=== PATIENT | male | born 1995 | race Caucasian/White ===

== ENCOUNTER 2017-06-19 09:59 | Emergency (ER) | payer OTHER ==
[~2017-06-19] VITALS: Ht 175.3 cm; Wt 86.2 kg
[2017-06-19] MEDS ORDERED: KEFLEX500 MG PO (11:08)
[2017-06-19] MEDS ORDERED: NORCO 5-325 TA1 EACH PO (11:09)
[2017-06-19] MEDS ORDERED: FLAGYL500 MG PO (11:09)
== END 2017-06-19 11:20 | disposition home or self-care (01) ==
LOC: ED 09:59
DX: L05.91 Pilonidal cyst without abscess (principal); F17.200 Nicotine dependence, unspecified, uncomplicated; Z88.1 Allergy status to other antibiotic agents
CPT/HCPCS: 87070; 87077; 87186; 87205; 99283

== ENCOUNTER 2017-08-27 10:31 | Emergency (ER) | payer OTHER ==
[~2017-08-27] VITALS: Ht 175.3 cm; Wt 81.7 kg
[~2017-08-27 10:31] MED LIST: FLAGYL500 MG PO; KEFLEX500 MG PO; NORCO 5-325 TA1 EACH PO
[2017-08-27] MEDS ORDERED: AUGMENTIN 875-1 EACH PO (10:55)
[2017-08-27] MEDS ORDERED: NORCO 5-325 TA1 EACH PO (10:55)
== END 2017-08-27 11:00 | disposition home or self-care (01) ==
LOC: ED 10:31
DX: L02.31 Cutaneous abscess of buttock (principal); F17.200 Nicotine dependence, unspecified, uncomplicated; Z88.1 Allergy status to other antibiotic agents; Z98.890 Other specified postprocedural states; Z79.899 Other long term (current) drug therapy
CPT/HCPCS: 99283

== ENCOUNTER 2017-10-03 14:48 | Emergency (ER) | payer OTHER ==
[~2017-10-03] VITALS: Ht 175.3 cm; Wt 83.9 kg
[~2017-10-03 14:48] MED LIST changes: +AUGMENTIN 875-1 EACH PO
== END 2017-10-03 15:08 | disposition home or self-care (01) ==
LOC: ED 14:48
DX: Z03.89 Encounter for observation for other suspected diseases and conditions ruled out (principal)

== ENCOUNTER 2017-11-16 19:18 | Emergency (ER) | payer OTHER ==
[~2017-11-16] VITALS: Ht 175.3 cm; Wt 83.9 kg
--- OUTSIDE RECORDS SUMMARY | ~2017-11-16 | XMS | Clinical Summary ---
Demographics + + + | Address | [address] | | | [place] [address] | + + + | Home Phone | | + + + | Preferred Language | Unknown | + + + | Marital Status | Single | + + + | Denominational Affiliation | NRP | + + + | Race | White | + + + | Ethnic Group | or | + + + Author + + + | Author | [facility] | + + + | Organization | [facility] | + + + | Address | Unknown | + + + | Phone | Unavailable | + + + Support + + +---------+ + | Name | Relationship | Address | Phone | + + +---------+ + | RICHARD GUPTA | ECON | Unknown | | + + +---------+ + | MAIRA GUPTA | ECON | Unknown | | + + +---------+ + Care Team Providers + +------+ + | Care Stretch Press Operator Name | Role | Phone | + +------+ + | Johnna Mcgee MD | PP | | + +------+ + Source Comments MARE is fully live on both EpicCare Ambulatory and EpicCare InPatient.[facility]ending [facility] Allergies + + + + + + | Active Allergy | Reactions | Severity | Noted | Comments | | | | | Date | | + + + + + + | Azithromycin | Unknown | | 10/17/19 | | | | | | 15 | | + + + + + + Current Medications + + +---------+---------+------+------+-------+ | Prescription | Sig. | Disp. | Refills | Star | End | Statu | | | | | | t | Date | s | | | | | | Date | | | + + +---------+---------+------+------+-------+ | albuterol 90 | Inhale every four | | | | | Activ | | mcg/actuation | hours as needed. | | | | | e | | inhalation HFA | | | | | | | | aerosol inhaler | | | | | | | + + +---------+---------+------+------+-------+ | ranitidine | Take 1 tablet by | 31 | 4 | 01/ | | Activ | | (ZANTAC) 150 mg oral | mouth once daily at | tablet | | 10/16 | | e | | tablet | bedtime. | | | 15 | | | + + +---------+---------+------+------+-------+ | lansoprazole | Take 1 capsule by | 31 | 3 | 01/2 | | Activ | | (PREVACID) 30 mg | mouth once daily in | capsule | | 1/20 | | e | | oral capsule,delayed | the morning. | | | 15 | | | | | Administer before | | | | | | | release(DR/EC)Indica | food; best if taken | | | | | | | tions: Heartburn | before breakfast. | | | | | | | | Indications: | | | | | | | | HEARTBURN | | | | | | + + +---------+---------+------+------+-------+ | fluticasone | Take 2 puffs by | 1 | 6 | 02/1 | | Activ | | (FLOVENT HFA) 220 | mouth two times | Inhaler | | 3/20 | | e | | mcg/actuation | daily. Swallow 2 | | | 15 | | | | inhalation aerosol | puffs just before | | | | | | | (aero)Indications: | going to school and | | | | | | | EOE | hsDo not eat or | | | | | | | | drink for 30 min | | | | | | | | after the med. | | | | | | | | Indications: EOE | | | | | | + + +---------+---------+------+------+-------+ Active Problems + + + | Problem | Noted Date | + + + | Duodenitis | 05/21/2015 | + + + | Eosinophilic esophagitis | 11/09/2014 | + + + | Migraines | 10/17/2014 | + + + | ADHD (attention deficit hyperactivity disorder) | 10/17/2014 | + + + | Depression | 10/17/2014 | + + + | Dysphagia | 10/17/2014 | + + + | Odynophagia | 10/17/2014 | + + + | Heartburn | 10/17/2014 | + + + Family History + + +------+ + | Medical History | Relation | Name | Comments | + + +------+ + | GI | Father | | heartburn | + + +------+ + | Cancer | Grandfath | | | | | er | | | + + +------+ + | GI | Grandfath | | ulcers | | | er | | | + + +------+ + | Arthritis | Grandmoth | | | | | er | | | + + +------+ + | GI | Grandmoth | | colon poyps | | | er | | | + + +------+ + | Thyroid | Grandmoth | | | | | er | | | + + +------+ + + +------+--------+ + | Relation | Name | Status | Comments | + +------+--------+ + | Father | | | | + +------+--------+ + | Grandfather | | | | + +------+--------+ + | Grandmother | | | | + +------+--------+ + Social History + +-------+ +--------+------+ | Tobacco Use | Types | Packs/Day | Years | Date | | | | | Used | | + +-------+ +--------+------+ | Passive Smoke | | | | | | Exposure - Never | | | | | | Smoker | | | | | + +-------+ +--------+------+ + +---+---+---+ | Smokeless Tobacco: | | | | | Never Used | | | | + +---+---+---+ + + + | Sex Assigned at | Date Recorded | | | | + + + | Not on file | | + + + Last Filed Vital Signs + + + + | Vital Sign | Reading | Time Taken | + + + + | Blood Pressure | 109/36 | 05/21/2015 8:00 AM PDT | + + + + | Pulse | 62 | 05/21/2015 7:49 AM PDT | + + + + | Temperature | 36.6 C (97.9 F) | 05/21/2015 9:00 AM PDT | + + + + | Respiratory Rate | 20 | 11/01/2014 11:00 AM PST | + + + + | Oxygen Saturation | 98% | 05/21/2015 7:49 AM PDT | + + + + | Inhaled Oxygen | - | - | | Concentration | | | + + + + | Weight | 77.7 kg (171 lb 4.8 | 05/21/2015 7:00 AM PDT | | | oz) | | + + + + | Height | 174 cm (5' 8.5") | 05/21/2015 7:00 AM PDT | + + + + | Body Mass Index | 25.67 | 05/21/2015 7:00 AM PDT | + + + + Plan of Treatment + + + + + | Health Maintenance | Due Date | Last Done | Comments | + + + + + | INFLUENZA VACCINE | | | | | (FLU SHOT) | 7 | | | + + + + + Results Not on filefrom Last 3 Months
--- OUTSIDE RECORDS SUMMARY | ~2017-11-16 | XMS | Clinical Summary ---
Demographics + + + | Address | [address] | | | [place] [address] | + + + | Home Phone | | + + + | Preferred Language | Unknown | + + + | Marital Status | Single | + + + | Restorationism Affiliation | NRP | + + + [...] Team Providers + +------+ + | Care Rotor Coil Taper Name | Role | Phone | + +------+ + | Johnna Mcgee MD | PP | | + +------+ + Source Comments MARE is fully live on both EpicCare Ambulatory and EpicCare InPatient.[facility] Allergies + + + + + + [...]
[2017-11-16] MEDS ORDERED: AUGMENTIN 875-1 EACH PO (20:06)
== END 2017-11-16 20:18 | disposition home or self-care (01) ==
LOC: ED 19:18
DX: L05.91 Pilonidal cyst without abscess (principal); F17.200 Nicotine dependence, unspecified, uncomplicated; Z88.0 Allergy status to penicillin
CPT/HCPCS: 99283

== ENCOUNTER 2017-12-03 11:31 | Emergency (ER) | payer OTHER ==
[~2017-12-03] VITALS: Ht 175.3 cm; Wt 83.9 kg
--- OUTSIDE RECORDS SUMMARY | ~2017-12-03 | XMS | Clinical Summary ---
Demographics + + + | Address | [address] | | | [place] [address] | + + + | Home Phone | | + + + | Preferred Language | Unknown | + + + | Marital Status | Single | + + + | Muslim Affiliation | NRP | + + + [...] Team Providers + +------+ + | Care Lawn Service Supervisor Name | Role | Phone | + +------+ + | Johnna Mcgee MD | PP | | + +------+ + Source Comments MARE is fully live on both EpicCare Ambulatory and EpicCare InPatient.[facility] Allergies + + + + + + [...]
--- OUTSIDE RECORDS SUMMARY | ~2017-12-03 | XMS | Clinical Summary ---
Demographics + + + | Address | [address] | | | [address] | | | [place] [address] | + + + | Home Phone | | + + + | Preferred Language | Unknown | + + + | Marital Status | Single | + + + | Jain Affiliation | UNKNOWN | + + + | Race | White | + + + | Ethnic Group | Not or | + + + Author + + + | Author | [facility] | + + + | Organization | [facility] | + + + | Address | Unknown | + + + | Phone | Unavailable | + + + Support + + + + + | Name | Relationship | Address | Phone | + + + + + | Shelbie Rose | ECON | [address], [place] | | | | | [address] | | + + + + + | Candy, | ECON | [address], [place] | | | [place] | | [address] | | + + + + + Care Team Providers + +------+ + | Care Recapper Name | Role | Phone | + +------+ + | Johnna Mcgee | PP | | + +------+ + Allergies + + + + + + | Active Allergy | Reactions | Severity | Noted | Comments | | | | | Date | | + + + + + + | Azithromycin | | | 12/20/20 | | | | | | 13 | | + + + + + + Current Medications + + +-------+---------+------+------+-------+ | Prescription | Sig. | Disp. | Refills | Star | End | Statu | | | | | | t | Date | s | | | | | | Date | | | + + +-------+---------+------+------+-------+ | dexmethylphenidate | Take 10 mg by mouth | | | | | Activ | | (FOCALIN XR) 10 mg | 2 Times Daily. | | | | | e | | MP50 | | | | | | | + + +-------+---------+------+------+-------+ | guanFACINE | Take 1 mg by mouth | | | | | Activ | | (INTUNIV ER) 1 mg | At Bedtime. | | | | | e | | Tb24 tablet ER | | | | | | | + + +-------+---------+------+------+-------+ Active Problems + + + | Problem | Noted Date | + + + | Chronic daily headache | 09/15/2013 | + + + Social History + +-------+ +--------+------+ | Tobacco Use | Types | Packs/Day | Years | Date | | | | | Used | | + +-------+ +--------+------+ | Never Smoker | | | | | + +-------+ +--------+------+ + + + | Sex Assigned at | Date Recorded | | | | + + + | Not on file | | + + + Last Filed Vital Signs + + + + | Vital Sign | Reading | Time Taken | + + + + | Blood Pressure | 132/77 | 09/15/2013 1:17 PM PST | + + + + | Pulse | 107 | 09/15/2013 1:17 PM PST | + + + + | Temperature | - | - | + + + + | Respiratory Rate | - | - | + + + + | Oxygen Saturation | - | - | + + + + | Inhaled Oxygen | - | - | | Concentration | | | + + + + | Weight | 77.5 kg (170 lb 13.7 | 09/15/2013 1:17 PM PST | | | oz) | | + + + + | Height | 172.1 cm (5' 7.75") | 09/15/2013 1:17 PM PST | + + + + | Body Mass Index | 26.17 | 09/15/2013 1:17 PM PST | + + + + Plan of Treatment + + + + + | Health Maintenance | Due Date | Last Done | Comments | + + + + + | IMM HPV (1 of 3 - | | | | | Male 3 Dose Series) | 8 | | | + + + + + | HIV Screening | | | | | | 2 | | | + + + + + | IMM MCV4 (1 of 1) | | | | | | 3 | | | + + + + + | Tetanus | | | | | | 6 | | | + + + + + | IMM Influenza (#1) | | | | | | 7 | | | + + + + + Results Not on filefrom Last 3 Months Insurance + +--------+ +--------+ + + | Payer | Benefi | Subscriber | Type | Phone | Address | | | t Plan | ID | | | | | | / | | | | | | | Group | | | | | + +--------+ +--------+ + + | [employer] | [place] | [id number] | Medica | [phone] [address] | | | MOD[employer] | | id | [id number] | [place], [place] | | | ODS | | | | [phone] | + +--------+ +--------+ + + + +--------+ +--------+ + + | Guarantor Name | Accoun | Relation to | Date | Phone | Billing Address | | | t Type | Patient | of | | | | | | | | | | + +--------+ +--------+ + + | EDGAR ROSE | Person | Father | [birth year] | Home: | [address] | | | al/Fam | | 1969 | [phone] | [address] [place], | | | nik | | | [phone] | [place] [phone] | + +--------+ +--------+ + +
--- OUTSIDE RECORDS SUMMARY | ~2017-12-03 | XMS | Clinical Summary ---
Demographics + + + | Address | [address] | | | [address] | | | [place] [address] | + + + | Home Phone | | + + + | Preferred Language | Unknown | + + + | Marital Status | Single | + + + | Moravian Affiliation | UNKNOWN | + + + [...] [address], [place] | | | | | [address] | | + + + + + | Candy, | ECON | [address], [place] | | | [place] | | [address] | | + + + + + Care Team Providers + +------+ + | Care Career Services Officer Name | Role | Phone | + [...] [employer] | [place] | [id number] | Medica | [phone] | [address] | | | MOD[place] | | id | [id number] | [place], [place] | | | ODS | | | | [phone] | + +--------+ +--------+ + + + [...] 1969 | [phone] | [address] [place], | | | nik | | | [phone] | [place] [phone] | + +--------+ +--------+ + +
--- OUTSIDE RECORDS SUMMARY | ~2017-12-03 | XMS | Clinical Summary ---
Demographics + + + | Address | [address] | | | [place] [address] | + + + | Home Phone | | + + + | Preferred Language | Unknown | + + + | Marital Status | Single | + + + | Yarsani Affiliation | NRP | + + + [...] Team Providers + +------+ + | Care Stablehand Name | Role | Phone | + +------+ + | Johnna Mcgee MD | PP | | + +------+ + Source Comments MARE is fully live on both EpicCare Ambulatory and EpicCare InPatient.[facility] Allergies + + + + + + [...]
== END 2017-12-03 12:24 | disposition home or self-care (01) ==
LOC: ED 11:31
DX: S60.221A Contusion of right hand, initial encounter (principal); F17.200 Nicotine dependence, unspecified, uncomplicated; Z88.1 Allergy status to other antibiotic agents; W22.01XA Walked into wall, initial encounter
CPT/HCPCS: 73130; 99283

== ENCOUNTER 2018-03-23 19:26 | Emergency (ER) | payer OTHER ==
[~2018-03-23] VITALS: Ht 175.3 cm; Wt 83.9 kg
== END 2018-03-23 21:18 | disposition home or self-care (01) ==
LOC: ED 19:26
PROC: 0HQFXZZ Repair Right Hand Skin, External Approach (ICD-10-PCS; principal; 2018-03-23)
DX: S61.210A Laceration without foreign body of right index finger without damage to nail, initial encounter (principal); W26.8XXA Contact with other sharp object(s), not elsewhere classified, initial encounter; F17.200 Nicotine dependence, unspecified, uncomplicated; Z88.1 Allergy status to other antibiotic agents
CPT/HCPCS: 12001; 90471; 90715; 99282

== ENCOUNTER 2018-03-31 18:04 | Emergency (ER) | payer OTHER ==
[~2018-03-31] VITALS: Ht 175.3 cm; Wt 81.7 kg
[2018-03-31] MEDS ORDERED: BACTRIM DS TAB1 EACH PO (19:09)
[2018-03-31] MEDS ORDERED: CEPHALEXIN500 MG PO (19:09)
== END 2018-03-31 19:25 | disposition home or self-care (01) ==
LOC: ED 18:04
DX: T81.4XXA Infection following a procedure, initial encounter (principal); F17.200 Nicotine dependence, unspecified, uncomplicated; Z88.1 Allergy status to other antibiotic agents
CPT/HCPCS: 87070; 87077; 87186; 87205; 99283

== ENCOUNTER 2019-08-08 10:44 | Emergency (ER) | payer SELFPAY ==
[~2019-08-08] VITALS: Ht 175.3 cm; Wt 104.3 kg
[~2019-08-08 10:44] MED LIST changes: +BACTRIM DS TAB1 EACH PO; +CEPHALEXIN500 MG PO
--- OUTSIDE RECORDS SUMMARY | 2019-08-08 13:28 | XMS ---
PreManage Notification: ROE ROSE Security Research Specialist Events No recent Security Events currently on file CRITERIA MET - [facility] - 2 Visits in 30 Days CARE PROVIDERS MERVAT MENJIVAR Nurse Practitioner: Family 05/17/2018-Current PHONE: Unknown [place] Primary Care Current CONTRERAS PHONE: Unknown Janeth has no Care Guidelines for this patient. Care History Medical/Surgical 12/06/2017 [facility] - Patient has been contacted by [facility] to set up with a PCP - Patient was provided with PCP information and patient declined help - [facility] stated the ED is not to be used as a primary care visit and that a PCP needs to be established - Please refer all Chronic Conditions to a PCP to reduce ED utilization. - ED utilization letter has been sent to patient address. Care Recommendation: This patient has had 5 or more Emergency Department visits in the last 12 months. Patient requires education on the scope and purpose of the ED as an acute care provider not a Primary Care Provider and should not be utilized for chronic conditions. If patient returns to ED please contact Community Health WorkerCarolyn at [phone].These are guidelines and the provider should exercise clinical judgment when providing care. EKimberly VISIT COUNT (12 MO.) [address] [facility] TOTAL 2 NOTE: Visits indicate total known visits. ED/UCC VISIT TRACKING (12 MO.) 08/08/2019 13:10 [facility] [place] TYPE: Emergency DIAGNOSES: - POSS STROKE LIKE SYMPTOMS 08/08/2019 10:[address] [facility] [place] TYPE: Emergency COMPLAINT: - VISION PROBLEM INPATIENT VISIT TRACKING (12 MO.) No inpatient visits to display in this time frame [email or web address]
== END 2019-08-08 12:30 | disposition home or self-care (01) ==
LOC: ED 10:44
DX: H53.8 Other visual disturbances (principal); F17.200 Nicotine dependence, unspecified, uncomplicated; Z88.1 Allergy status to other antibiotic agents
CPT/HCPCS: 70450; 99284-25